=== PATIENT | male | born 1955 | race Caucasian/White ===

== ENCOUNTER 2022-10-21 10:00 | Outpatient (RCR) | payer OTHER, SELFPAY | END 2023-03-06 23:59 | disposition home or self-care (01) | PROVIDERS: PCP Family Medicine; Visit Provider Family Medicine | DX: M16.0 Bilateral primary osteoarthritis of hip (principal); M48.07 Spinal stenosis, lumbosacral region; M54.50 Low back pain, unspecified; M54.9 Dorsalgia, unspecified; M25.551 Pain in right hip; R26.9 Unspecified abnormalities of gait and mobility; Z95.0 Presence of cardiac pacemaker; Z87.39 Personal history of other diseases of the musculoskeletal system and connective tissue; I48.91 Unspecified atrial fibrillation; Z51.89 Encounter for other specified aftercare | CPT/HCPCS: 97110; 97112; 97162 ==

== ENCOUNTER 2022-11-03 09:28 | Outpatient (CLI) | payer OTHER, SELFPAY | END 2022-11-03 09:29 | disposition home or self-care (01) | PROVIDERS: PCP Family Medicine; Visit Provider Orthopaedic Surgery | DX: Z01.818 Encounter for other preprocedural examination (principal) | CPT/HCPCS: 36415; 86850; 86900; 86901 ==

== ENCOUNTER 2022-11-05 09:51 | Day surgery (SDC) | payer OTHER, SELFPAY ==
[2022-11-05] VITALS (24 sets, daily range): BP systolic 99–159; BP diastolic 55–86; PULSE 61–96; RESP 12–16; TEMP 35.8–36.7; O2SAT 91–99; BMI 40.6
[2022-11-05] MEDS: LACTATED RINGERS 1000 ML 1,000 ML 100 ML IV ×2 (09:55→12:18)
[2022-11-05] MEDS: CELECOXIB 200 MG CAPSULE PO (10:35)
[2022-11-05] MEDS: OXYCODONE (CR) 10 MG TAB.ER.12H PO (10:35)
[2022-11-05] MEDS: ACETAMINOPHEN 500 MG TABLET 1000 MG PO ×2 (10:35→16:04)
[2022-11-05] MEDS: SODIUM CHLORIDE 0.9 % (FLUSH) 10 ML SYRINGE IVF (10:43)
--- NOTE | 2022-11-05 10:55 | SUR.PREOP ---
TIME?OUT:?10:55am PT/RN/MDA?VERIFICATION?OF?SURGICAL?SITE Right Hip,?PROCEDURE Nerve Block,?AND?CONSENT OBTAINED?PRIOR?TO?INVASIVE?PROCEDURE.
[2022-11-05] MEDS: fentaNYL 100 MCG/2 ML inj IVP (10:56)
[2022-11-05] MEDS: MIDAZOLAM HCL 1 MG/ML inj IVP (10:56)
--- NOTE | 2022-11-05 11:00 | W.ANESCHARGE ---
Anesthesia Charges Start Date/Time Anesthesia Start Date: 11/05/22 Anesthesia Start Time: 11:06 Stop Date/Time Anesthesia Stop Date: 11/05/22 Anesthesia Stop Time: 14:05
--- NOTE | 2022-11-05 11:01 | P.NB_ITS ---
Nerve Block Nerve Block Time Seen by Provider: 10:58 Date Seen: 11/05/22 Type of block requested by surgeon for post-operative analgesia: BEN/LFCN Side: right Time out performed: Yes Verification of patient name: Yes Verification of date of : Yes Site marking: site marked Name of person performing procedure: Kentrell Continuous monitoring Was continuous monitoring of O2 sat, B/P, satellite project site monitor, recorded every 15 minutes?: Yes Procedure Checklist: sterile prep, needles and gloves Ultrasound guided. Images saved: Yes Medications given in 5ml increments after negative aspiration: Ropivicaine %: 0.5 mL: 30 Needle gauge: 20 Decadron (mg): 10 Precedex (mcg): 25 Patient tolerated procedure well: Yes Additional comments: Needle noted below psoas tendon needle noted adjacent to LFCN Block Charges Block Charge (with Pro Fee): Other Periph Nerve Block Use of Ultrasound Machine for Block: Yes- US Guidance/pain block
[2022-11-05] MEDS: TRANEXAMIC ACID 100 MG/ML INJ 1000 MG IV (11:10)
[2022-11-05] MEDS: CEFAZOLIN 2 GM INJ IVP (11:14)
--- NOTE | 2022-11-05 11:30 | CRLHL7_ITS ---
For Patients: As a result of the Cures Act, medical imaging exams and procedure reports are released immediately into your electronic medical record. You may view this report before your referring provider. If you have questions, please contact your health care provider. Indication: Hip replacement surgery Technique: AP hip fluoroscopic images. Fluoroscopy time 80.2 seconds. Findings/Impression: Hardware from a right total hip arthroplasty is in satisfactory position. Dictated by Darryl Donaldson MD @ 11/05/2022 3:09:05 PM (Electronically Signed)
--- NOTE | 2022-11-05 13:10 | SUR.PREOP ---
I have reviewed and concur with all assessments, medication administration, and documentation completed by Varsha Monte, student nurse.?
--- NOTE | 2022-11-05 13:15 | CRLHL7_ITS ---
For Patients: As a result of the Cures Act, medical imaging exams and procedure reports are released immediately into your electronic medical record. You may view this report before your referring provider. If you have questions, please contact your health care provider. Indication: Postop Technique: AP hips and pelvis and lateral view right hip Findings/Impression: Hardware from a right total hip arthroplasty is in satisfactory position. Bone alignment is normal. No sign of acute fracture. Postop changes are within normal limits. Dictated by Darryl Donaldson MD @ 11/06/2022 6:37:02 AM (Electronically Signed)
--- NOTE | 2022-11-05 13:18 | PM.ORPRC ---
Procedure Note Date of procedure: 11/05/22 Procedure: PREOPERATIVE DIAGNOSIS: Right hip osteoarthritis POSTOPERATIVE DIAGNOSIS: Right hip osteoarthritis NAME OF OPERATION: Right total hip arthroplasty SURGEON: Hugo Grove MD MEDICAL TRANSPORT SPECIALIST: Gina Elizondo PA-C, MAJO Horn IMPLANTS: 1. [employer] [place] # 54 sector ingrowth cup 2. 36 x 54 +4 neutral polyethylene 3. Actis # 7 high collared ingrowth stem 4. 36 + 8.5 ceramic femoral head ANESTHESIA: General ESTIMATED BLOOD LOSS: 850 cc COMPLICATIONS: None SPECIMENS: None DRAINS: None PREOPERATIVE ANTIBIOTICS: Ancef 3 grams INDICATIONS: The patient is a 66-year-old with a longstanding history of severe, unrelenting right hip pain secondary to end-stage right hip osteoarthritis. Despite appropriate nonoperative management, including activity modification, use of an assist device, anti-inflammatories, [id number] pain medication, physical therapy and injections, they continue to have pain and disability. Operative intervention was offered. The risks, benefits and expected outcomes were discussed in detail. These included but were not limited to: Infection, bleeding, injury to blood vessel or nerve, venous thromboembolism. All questions were answered to their satisfaction. Use of an contact lens assistant was necessary throughout the case for patient positioning and safety, soft tissue retraction and closure. A modifier 22 should be added to this case. The patient's weight of 125 kg with a BMI of 40.7 kg/meter squared made the exposure quite difficult. This doubled the time typically required to complete the case. PROCEDURE: The patient was placed supine on the [place] table. General anesthesia was administered. The contact lens assistant made sure the patient was properly positioned. The right hip was prepped and draped in the usual sterile fashion. The image intensifier was brought in for a perfect AP pelvis and a perfect double tear drop AP view of each hip which were used for intraoperative templating with our fluoroscopic guide. An oblique incision was made 3 cm distal and 3 cm lateral to the anterior superior iliac spine. The contact lens assistant retracted the soft tissues to protect them. Subcutaneous dissection was taken with electrocautery to the superficial fascia. The fascia was divided in line with the incision. Blunt dissection was carried medially to the tensor fascia holly and sartorius interval. Deep dissection was carried with electrocautery. The circumflex vessels were cauterized and divided. The capsule was exposed and then divided in a T-fashion, tagged with #1 Ethibond sutures. Retractors were placed in the joint, held by the contact lens assistant. The corkscrew was placed in the femoral head. The neck cut was made in the subcapital region. We made a second neck cut more distal. The napkin ring of bone was removed. The femoral head was removed intact. Acetabular retractors were placed, held by the contact lens assistant. The labrum was sharply debrided. The capsule was released. The 43 mm reamer was used to the true medial wall. We then enlarged in 2 mm increments using the image intensifier for our reamer placement. We impacted the cup which had excellent purchase. We placed the hole eliminator and the polyethylene. Attention was then turned to the proximal femur. The limb was placed in 140 degrees of external rotation, maximum extension and adduction. A significant amount of time was spent releasing the capsule to allow us to deliver the femur into the wound and complete the femoral side safely. Retractors were held by the contact lens assistant throughout the femoral preparation. The box toe maker and canal finder were used. Broaches were used to a stable size. The calcar reamer was used. Trial components were placed. The hip was reduced and was found to be stable with appropriate soft tissue tension. Length and offset had been nicely restored using the image intensifier and our fluoroscopic guide. Trial components were removed. The stem was impacted. We placed the femoral head. Again, the hip was reduced and was found to be stable with appropriate soft tissue tension. Length and offset had been nicely restored. The contact lens assistant did a three minute dilute Betadine solution soak. The contact lens assistant irrigated the wound with 3 liters of normal saline via pulse lavage. The contact lens assistant repaired the anterior capsule with a #1 Vicryl and our previously placed Ethibond sutures. The contact lens assistant closed the fascia over the tensor fascia holly with a #1 PDO Stratafix, subcutaneous tissues with 2-0 Vicryl, skin with a running 3-0 Stratafix and glue. A dry dressing was applied by the contact lens assistant. Sponge and needle counts were correct x 2. The patient tolerated the procedure well; there were no apparent complications. They were awakened and extubated in the operating room, sent to the Post-Anesthesia Care Unit in satisfactory condition. PLAN: 1. The patient will be mobilized with physical therapy, weight-bearing as tolerates 2. Eliquis can be restarted in 24 hours 3. The patient will be discharged once medically appropriate
[2022-11-05] MEDS: fentaNYL 100 MCG/2 ML inj 50 MCG IVP ×2 (14:08→14:22)
--- NOTE | 2022-11-05 14:10 | W.ANESCHARGE ---
Anesthesia Charges Start Date/Time Anesthesia Start Date: 11/05/22 Anesthesia Start Time: 11:06 Stop Date/Time Anesthesia Stop Date: 11/05/22 Anesthesia Stop Time: 14:05
--- NOTE | 2022-11-05 14:42 | SUR.PHASEI ---
xray ap/lat right hip taken
--- NOTE | 2022-11-05 15:23 | PM.IMCN1 ---
Date of Consult Patient: Carmen Patient Consult date: 11/05/22 Requesting Physician: Orthopedics Primary Care Provider: Adelfo Nickerson MD Consult Narrative Reason for consult: hypertension Narrative: Darryl Leo is a 66 year old male who underwent an elective right total hip arthroplasty today. His , Sheela, is in the room with him. He is doing well postoperatively and has very little pain at present. Review of Systems Status of ROS: Reports: 6 or more systems reviewed and unremarkable except as noted in History and below PFSH PFS Medical History (Updated 11/05/22 @ 16:11 by Lucero Chauhan MD) Adenomatous colon polyp (~12/2020) Cardiac arrhythmia Cellulitis and abscess of trunk Contusion of left knee Eczema Hyperlipidemia Hypertension Obesity Pacemaker (08/21/15) Paroxysmal A-fib (~2021) Type 2 diabetes mellitus (~02/20/22) Surgical History (Updated 11/05/22 @ 16:10 by Lucero Chauhan MD) H/O colonoscopy History of incision and drainage (~10/26/13) Hx of LASIK (~2011) Status post total replacement of right hip (11/05/22) Family History Maternal Grandmother No problems noted. Mother Breast cancer Diabetes Father Coronary arteriosclerosis Sister Cancer Social History (Updated 11/05/22 @ 15:28 by Lucero Chauhan MD) Narrative: to Sheela. Quit smoking 4-5 years ago. Denies chewing tobacco. Used to smoke 1ppd for 50 years. Drinks 1 beer month. Retired from [employer]. Smoking Status: Former smoker What tobacco products do you use: cigarettes Smoking quit date/years: <= 15 years ago Do you use any of these nicotine containing products: None Second hand tobacco smoke exposure: No How often do you have a drink containing alcohol: monthly or less Alcohol type: beer How many standard drinks containing alcohol do you have on a typical day: 1 or 2 How often do you have six or more drinks on one occasion: Never AUDIT-C Alcohol total score: 1 Non-prescribed substance use: denies use Caffeine: Yes (Mountain Dew, 3 cans/day) Meds Home Medications and Allergies Home Medications Medication Instructions Recorded Confirmed Type apixaban 5 mg tablet (Eliquis) 5 mg PO BID 09/23/22 11/05/22 History atorvastatin 20 mg tablet 20 mg PO HS 09/23/22 11/05/22 History betamethasone dipropionate 0.05 % 1 applic topical Q12H PRN 09/23/22 11/05/22 History topical cream hydrochlorothiazide 25 mg tablet 25 mg PO DAILY 09/23/22 11/05/22 History lisinopril 40 mg tablet 40 mg PO DAILY 09/23/22 11/05/22 History Allergies Allergy/AdvReac Type Severity Reaction Status Date / Time No Known Drug Allergies Allergy Verified 11/05/22 10:09 Exam Narrative: Exam Narrative: General: No acute distress. Awake alert oriented x3. HEENT: Normocephalic atraumatic, pupils equally round and reactive to light and accommodation. Oropharynx clear. Mucous membranes are moist. No cervical lymphadenopathy, thyromegaly or carotid bruits. No JVD. Cardiovascular: Irregularly irregular. No murmurs, gallops, or rubs. Chest: No increased work of breathing. Clear to auscultation bilaterally. No crackles or wheezes. Abdomen: Bowel sounds present. Soft, nondistended, nontender. No hepatosplenomegaly or masses. Extremities: Right hip bandage is clean, dry, and intact. No edema, no cyanosis or clubbing. Skin: No jaundice, no pallor, no rashes. Const: Vital Signs, click to edit/add: Vital Signs - 24 hr 11/05/22 10:21 11/05/22 10:51 11/05/22 10:56 Temperature 98.1 F Pulse Rate 71 71 71 Pulse Rate [Right Pulse Oximeter] Respiratory Rate 16 16 16 Blood Pressure 127/66 117/70 107/56 L Blood Pressure [Ri ght Arm] Pulse Oximetry 95 94 96 Oxygen Delivery Me thod Room Air Nasal Cannula Nasal Cannula Oxygen Flow Rate 2 2 11/05/22 10:59 11/05/22 14:01 11/05/22 14:05 Temperature 97.4 F L Pulse Rate 70 74 63 Pulse Rate [Right Pulse Oximeter] Respiratory Rate 16 16 16 Blood Pressure 109/55 L 133/59 L 99/62 Blood Pressure [Ri ght Arm] Pulse Oximetry 95 97 97 Oxygen Delivery Me thod Nasal Cannula Room Air Room Air Oxygen Flow Rate 2 11/05/22 14:10 11/05/22 14:15 11/05/22 14:20 Temperature Pulse Rate 63 62 61 Pulse Rate [Right Pulse Oximeter] Respiratory Rate 16 16 16 Blood Pressure 121/61 124/61 124/56 L Blood Pressure [Ri ght Arm] Pulse Oximetry 95 94 98 Oxygen Delivery Me thod Room Air Room Air Room Air Oxygen Flow Rate 11/05/22 14:25 11/05/22 14:30 11/05/22 14:55 Temperature 97.4 F L 96.5 F L Pulse Rate 64 65 Pulse Rate [Right Pulse Oximeter] 64 Respiratory Rate 16 16 16 Blood Pressure 124/57 L 124/57 L Blood Pressure [Ri ght Arm] 133/63 Pulse Oximetry 99 97 95 Oxygen Delivery Me thod Room Air Room Air Room Air Oxygen Flow Rate 2 11/05/22 15:17 Temperature 96.5 F L Pulse Rate 64 Pulse Rate [Right Pulse Oximeter] Respiratory Rate 16 Blood Pressure Blood Pressure [Ri ght Arm] 133/63 Pulse Oximetry Oxygen Delivery Me thod Room Air Oxygen Flow Rate Labs Labs: Ordering Physician: Hugo Grove M.D. Date of Service: 11/05/22 Procedure(s): XR hip RT 1V Accession Number(s): [id number] cc: Adelfo Nickerson M.D.; Hugo Grove M.D.~ For Patients: As a result of the Cures Act, medical imaging exams and procedure reports are released immediately into your electronic medical record. You may view this report before your referring provider. If you have questions, please contact your health care provider. Indication: Hip replacement surgery Technique: AP hip fluoroscopic images. Fluoroscopy time 80.2 seconds. Findings/Impression: Hardware from a right total hip arthroplasty is in satisfactory position. Dictated by Darryl Donaldson MD @ 11/05/2022 3:09:05 PM (Electronically Signed) Assessment and Plan Assessment and plan (1) Status post total replacement of right hip: Problem comment: JAMES-AA (11/05/2022, Dr. Grove) Status: Acute (2) Paroxysmal A-fib: Problem comment: on Eliquis since ~Jul 2022 Status: Acute (3) Pacemaker: Problem comment: for heart block causing syncope Status: Acute (4) Hypertension: Status: Acute (5) Hyperlipidemia: Status: Acute Plan This is a 66-year-old male who underwent an elective right total hip arthroplasty today. He is doing well postoperatively. Continue routine postop cares. Due to some soft blood pressures in the PACU, I will hold his usual antihypertensives for now. If he becomes hypertensive, these can be given. For atrial fibrillation, his rate is controlled. Restart apixaban in the morning. VTE prophylaxis with apixaban.
[2022-11-05] MEDS: LACTATED RINGERS 1000 ML 1,000 ML 75 ML IV (15:43)
[2022-11-05] MEDS: OXYCODONE 5 MG TABLET PO (16:05)
[2022-11-05] MEDS: CEFAZOLIN 3 GM in 0.9 % SODIUM CHLORIDE 100 ml 100 ML IVPB (17:44)
--- NOTE | 2022-11-05 18:09 | PC.NURSE ---
PATIENT PLEASANT AND COOPERATIVE, ALERT AND ORIENTED, RATING PAIN IN RIGHT HIP MILD BEING MANAGED WITH PRN OXYCODONE AND SCHEDULED TYLENOL, ALSO HAVING SOME DISCOMFORT IN RIGHT KNEE, ICE PACK TO BOTH RIGHT HIP AND RIGHT KNEE, UP A1 WALKER AND BELT TO CHAIR TOLERATING FAIRLY, PATIENT EXPRESSED INCREASE PAIN WITH MOVEMENT, TOLERATING REGULAR DIET NO NAUSEA OR VOMITING, AT BEDSIDE AND VERY SUPPORTIVE.
[2022-11-05] MEDS: ATORVASTATIN 10 MG TABLET 20 MG PO (21:07)
[2022-11-05] MEDS: SENNOSIDES 1 TAB TABLET 2 TAB PO (21:08)
[2022-11-06 03:00] VITALS: BP 158/86; PULSE 85; RESP 12; TEMP 36.4; O2SAT 98
--- NOTE | 2022-11-06 04:44 | PC.NURSE ---
Patient is alert and oriented x 4, vss, on RA, regular diet. Patient is voiding WDL, he denies pain, up with walker and gait belt to bathroom. Surgical site is CDI.
[2022-11-06 06:48] LABS: Hematocrit 36.2 % (37.0-53.0); Hemoglobin* 11.7 gm/dL (13.5-17.5); Immature Granulocytes Pct Auto 0.2 %; Lymphocytes Percent Auto 5.8 % (20-44); Mean Corpuscular HGB Conc 32 gm/dL (32-36); Mean Corpuscular Hemoglobin 30 pg (26-34); Mean Corpuscular Volume 93 fL (80-100); Monocytes Percent Auto 7.1 % (0.0-11.0); Neutrophils Percent Auto 86.9 % (42.0-72.0); Platelet Count* 205 K/uL (140-440); RDW Coefficient of Variation % 13.3 % (11.5-15.5); Red Blood Count 3.91 m/uL (4.30-5.90); White Blood Count* 14.66 K/uL (4.50-11.00)
[2022-11-06 07:17] LABS: Potassium* 4.2 mmol/L (3.6-5.1); Sodium* 135 mmol/L (135-149)
[2022-11-06 07:18] LABS: Slide Review Reflex No
[2022-11-06 07:19] LABS: Creatinine* 0.8 mg/dL (0.5-1.5); Est. Creatinine Clearance* 78.44; Estimated Glomerular Filt Rate 98 ml/min
[2022-11-06 07:20] LABS: Blood Urea Nitrogen* 15 mg/dL (7-30)
[2022-11-06 07:30] VITALS: BP 141/83; PULSE 79; RESP 18; TEMP 36.5; O2SAT 96
[2022-11-06] MEDS: ACETAMINOPHEN 500 MG TABLET 1000 MG PO (07:59)
[2022-11-06] MEDS: CEFAZOLIN 3 GM in 0.9 % SODIUM CHLORIDE 100 ml 100 ML IVPB (08:01)
[2022-11-06] MEDS: APIXABAN 5 MG TABLET PO (09:05)
--- NOTE | 2022-11-06 10:18 | P.ORPN_ITS ---
Subjective Subjective Time Seen by Provider: 07:15 Date Seen: 11/06/22 Principal diagnosis: Status post right total hip arthroplasty. 11/05/2022 Interval history: Darryl is comfortable this morning. He is moving well. He will discharge to [facility] today Ortho Exam Narrative Exam Narrative: Alert and oriented x3. Patient is in no acute distress. Converses without labored breathing. Hearing is grossly intact. Ambulates with a walker. Examination of the right hip shows the dressing is intact. Mild soft tissue edema about the right hip. CMS is intact right lower extremity. Bilateral calves are soft and nontender. Const Vital Signs, click to edit/add: Vital Signs - 24 hr 11/05/22 10:21 11/05/22 10:51 11/05/22 10:56 Temperature 98.1 F Pulse Rate 71 71 71 Pulse Rate [Right Pulse Oximeter] Respiratory Rate 16 16 16 Blood Pressure 127/66 117/70 107/56 L Blood Pressure [Left Arm] Blood Pressure [Right Arm] Pulse Oximetry 95 94 96 Oxygen Delivery Method Room Air Nasal Cannula Nasal Cannula Oxygen Flow Rate 2 2 11/05/22 10:59 11/05/22 14:01 11/05/22 14:05 Temperature 97.4 F L Pulse Rate 70 74 63 Pulse Rate [Right Pulse Oximeter] Respiratory Rate 16 16 16 Blood Pressure 109/55 L 133/59 L 99/62 Blood Pressure [Left Arm] Blood Pressure [Right Arm] Pulse Oximetry 95 97 97 Oxygen Delivery Method Nasal Cannula Room Air Room Air Oxygen Flow Rate 2 11/05/22 14:10 11/05/22 14:15 11/05/22 14:20 Temperature Pulse Rate 63 62 61 Pulse Rate [Right Pulse Oximeter] Respiratory Rate 16 16 16 Blood Pressure 121/61 124/61 124/56 L Blood Pressure [Left Arm] Blood Pressure [Right Arm] Pulse Oximetry 95 94 98 Oxygen Delivery Method Room Air Room Air Room Air Oxygen Flow Rate 11/05/22 14:25 11/05/22 14:30 11/05/22 14:55 Temperature 97.4 F L 96.5 F L Pulse Rate 64 65 Pulse Rate [Right Pulse Oximeter] 64 Respiratory Rate 16 16 16 Blood Pressure 124/57 L 124/57 L Blood Pressure [Left Arm] Blood Pressure [Right Arm] 133/63 Pulse Oximetry 99 97 95 Oxygen Delivery Method Room Air Room Air Room Air Oxygen Flow Rate 2 11/05/22 15:17 11/05/22 15:00 11/05/22 16:00 Temperature 96.5 F L Pulse Rate 64 Pulse Rate [Right Pulse Oximeter] 66 71 Respiratory Rate 16 16 16 Blood Pressure Blood Pressure [Left Arm] Blood Pressure [Right Arm] 133/63 136/60 153/63 H Pulse Oximetry 95 96 Oxygen Delivery Method Room Air Room Air Room Air Oxygen Flow Rate 11/05/22 15:30 11/05/22 15:15 11/05/22 16:30 Temperature Pulse Rate Pulse Rate [Right Pulse Oximeter] 76 63 71 Respiratory Rate 16 16 16 Blood Pressure Blood Pressure [Left Arm] Blood Pressure [Right Arm] 144/80 H 136/67 155/79 H Pulse Oximetry 91 93 92 Oxygen Delivery Method Room Air Room Air Room Air Oxygen Flow Rate 11/05/22 17:00 11/05/22 18:00 11/05/22 19:00 Temperature 97.0 F L 97.2 F L Pulse Rate Pulse Rate [Right Pulse Oximeter] 70 70 91 Respiratory Rate 16 16 12 Blood Pressure Blood Pressure [Left Arm] Blood Pressure [Right Arm] 159/86 H 120/73 132/73 Pulse Oximetry 97 91 98 Oxygen Delivery Method Room Air Room Air Room Air Oxygen Flow Rate 11/05/22 21:00 11/05/22 22:00 11/05/22 23:00 Temperature 98 F 97.4 F L 98 F Pulse Rate Pulse Rate [Right Pulse Oximeter] 96 96 96 Respiratory Rate 12 12 12 Blood Pressure Blood Pressure [Left Arm] Blood Pressure [Right Arm] 124/82 146/81 H 133/74 Pulse Oximetry 96 95 96 Oxygen Delivery Method Room Air Room Air Room Air Oxygen Flow Rate 11/06/22 03:00 11/06/22 07:30 Temperature 97.5 F L 97.7 F Pulse Rate Pulse Rate [Right Pulse Oximeter] 85 79 Respiratory Rate 12 18 Blood Pressure Blood Pressure [Left Arm] 141/83 H Blood Pressure [Right Arm] 158/86 H Pulse Oximetry 98 96 Oxygen Delivery Method Room Air Room Air Oxygen Flow Rate Assessment and Plan Assessment and plan (1) Status post total replacement of right hip: Problem details: JAMES-AA (11/05/2022, Dr. Grove) Status: Acute Assessment and Plan: Plan for discharge is today to home if they meet discharge criteria. DVT prophylaxis includes usual dose of Eliquis, Bladimir stockings x1 month may remove for 1 hr per day, frequent ambulation Remove dressing 1 week. Observe wound and phone Orthopedics with any questions or concerns Use Ice on operative hip unrestricted. Return to clinic in 1 week with PA for a wound check Return to clinic in [address] Grove Minimize narcotic use. Wean off and discontinue soon as possible. Activities as tolerated. No strenuous activity. Attend outpt PT (2) Paroxysmal A-fib: Problem details: on Eliquis since ~Jul 2022 Status: Acute (3) Pacemaker: Problem details: for heart block causing syncope Status: Acute (4) Hypertension: Status: Acute (5) Hyperlipidemia: Status: Acute
--- NOTE | 2022-11-06 11:18 | PC.SOCIAL ---
Per therapy pt is transferring and moving well. Pt is discharging home with 's assistance during recovery. Pt does not have any identified needs for social work.
[2022-11-06 11:29] VITALS: BP 141/83; PULSE 79; RESP 18; TEMP 36.5
--- NOTE | 2022-11-06 11:31 | PC.NURSE ---
D/C: SBA w/ walker. Mild to moderate pain reported. Scheduled Tylenol was given and PRN oxycodone was declined by pt. Dressing CDI, active ice to site. Tolerate regular diet, no nausea/vomiting. IV D/C tip intact. D/c instructions given verbally and in writing to patient and spouse. All questions answered. Follow-up apts reviewed and patient aware. Left via wheelchair and 1103 with spouse and returning home.
== END 2022-11-06 11:03 | disposition home or self-care (01) ==
LOC: OR 09:52 → MEDSURG 11:05
PROVIDERS: PCP Family Medicine; Visit Provider Orthopaedic Surgery
PROC: (CPT 27130; principal; 2022-11-05 11:30)
DX: M16.11 Unilateral primary osteoarthritis, right hip (principal); I48.0 Paroxysmal atrial fibrillation; Z95.0 Presence of cardiac pacemaker; I10 Essential (primary) hypertension; E78.5 Hyperlipidemia, unspecified; E11.9 Type 2 diabetes mellitus without complications; E66.9 Obesity, unspecified; Z68.38 Body mass index [BMI] 38.0-38.9, adult
CPT/HCPCS: 27130; 01214; 36415; 64450; 73501; 76000; 76942; 82565; 82962; 84132; 84295; 84520; 85025; 94761; 97110; 97116; 97161; 97165; 97535; 99211; A9270; C1776; J0330; J0690; J1100; J2250; J2405; J2704; J2710; J2795; J3010; J7120

== ENCOUNTER 2022-12-23 08:30 | Outpatient (RCR) | payer OTHER, SELFPAY ==
--- NOTE | 2022-10-28 14:35 | PT.OPEX ---
PT [place] [facility] Eval PT [facility] Outpatient Eval Start: 10/28/22 14:13 Freq: Status: Active Protocol: Document 10/28/22 14:14 RIO (Rec: 10/28/22 14:30 RIO [id number]) E-signed By Cande Odom DPT Physical Therapy Outpatient Evaluation Insurance Information Recert Due Date 01/26/23 Insurance Name Other; See Comments Insurance Information/Comments [employer] Medical Diagnosis R hip OA R JAMES 11/05/22 Treating Diagnosis R hip pain, impaired R hip ROM , impaired R hip/LE mobility/ strength, impaired limping/ antalgic gait Subjective Subjective Patient reports chronic R hip pain leading up to R JAMES . He reports having recent PT for his back and hip. He is doing some home exercises regularly, getting them in 4x/ day. He reports increased pain with WB, walking, activity. Pain up to 7/10. He lives with spouse and she is able to assist him as needed after surgery. Date of Last Physician Visit 09/23/22 Date of Surgery (If applicable) 11/05/22 Current Work Status Retired Precautions Treatment Precautions/Contraindications pacemaker Assessment Assessment/Impression Patient is a 66 year old male with chronic R hip pain, impaired R hip ROM, impaired R hip/LE mobility/strength, impaired limping/antalgic gait leading up to R JAMES scheduled for 11/05/22. Patient seen in PT today for pre-op session to provide education/ information on upcoming JAMES surgery, safety information/HO , equipment instruction including use of FWW, and instruction in JAMES exercises. Handouts issued for exercises , patient to perform them leading up to surgery. He recently had PT for chronic back pain and R hip pain. States he has been doing some home exercises from that PT course of care. He was instructed to continue with these exercises. Reviewed PT/ OT plan during hospital stay and patient is scheduled for OP PT post op. He lives with his spouse. She is able to assist as needed after d/c. Patient has a ramp to enter through the front door. One stair up to enter the home from the garage. Once inside, patient can stay on the main level. He has a FWW and cane to use after surgery. Hasn't been using an AD prior to surgery. Reports having a high toilet. Discussed a commode chair for over the toilet but patient did not think he would need that with his higher toilet seat. He has a tub shower. He is planning to borrow a tub chair . He denies any prior back, hip, or knee surgeries. States he has a LLD with R LE shorter than L LE, MD will be trying to even out LL with his hip surgery. Patient will return to OP PT after his surgery on 11/05. Patient would benefit from skilled PT for pain/sx management, improved hip ROM, improved hip /LE mobility/strength, improved gait, balance/ proprioception training, and establishment of HEP. Plan of Care Rehabilitation Potential Good Physical Therapy Goals 1. Patient will be educated in JAMES pre/post-op safety, mobility, and exercises with HOs provided within one visit with patient returning to PT for post op treatment after R JAMES surgery on 11/05/22. PT goals will be updated to JAMES rehab goals when patient returns post op. Coordination/Communication With Referral Source Treatment Plan/Direct Interventions Gait Training,Manual Therapy, Therapeutic Exercises Frequency/Duration one pre-op session, 1x/week post op Patient Will Be Discharged From Therapy Completion of LTG(s),Skills Plateau,Independent w/HEP, Independently Progressing Evaluation Billing Untimed Code Treatment Minutes 35 Complexity Moderate Certification Information Initial Certification Date 10/28/22 Ending Certification Date 01/26/23 Provider Signature Shows Agreement With POC & Medical Necessity Physician Signature & Date Requested Please Sign/Date Here Physician Comment/Change : Physician NPI Number #
== END 2023-03-21 14:40 | disposition home or self-care (01) ==
PROVIDERS: PCP Family Medicine; Visit Provider Orthopaedic Surgery
DX: M16.11 Unilateral primary osteoarthritis, right hip (principal); Z96.641 Presence of right artificial hip joint; Z51.89 Encounter for other specified aftercare
CPT/HCPCS: 97110; 97162; 97164

== ENCOUNTER 2023-03-25 11:48 | Outpatient (CLI) | payer OTHER, SELFPAY | END 2023-03-25 11:49 | disposition home or self-care (01) | PROVIDERS: PCP Family Medicine; Visit Provider Orthopaedic Surgery | DX: Z01.818 Encounter for other preprocedural examination (principal) | CPT/HCPCS: 36415; 86850; 86900; 86901 ==

== ENCOUNTER 2023-03-27 06:05 | Day surgery (SDC) | payer OTHER, SELFPAY ==
[2023-03-27] VITALS (32 sets, daily range): BP systolic 105–157; BP diastolic 61–105; PULSE 59–80; RESP 14–18; TEMP 35.8–36.8; O2SAT 92–100; BMI 39.4
[2023-03-27] MEDS: LACTATED RINGERS 1000 ML 1,000 ML 100 ML IV (06:15)
[2023-03-27] MEDS: ACETAMINOPHEN 500 MG TABLET 1000 MG PO ×3 (06:34→20:26)
[2023-03-27] MEDS: OXYCODONE (CR) 10 MG TAB.ER.12H PO (06:35)
[2023-03-27] MEDS: SODIUM CHLORIDE 0.9 % (FLUSH) 10 ML SYRINGE IVF (06:35)
[2023-03-27] MEDS: CELECOXIB 200 MG CAPSULE PO (06:35)
--- NOTE | 2023-03-27 07:03 | SUR.PREOP ---
TIME?OUT:?0720 PT/RN/MDA?VERIFICATION?OF?SURGICAL?SITE Left Hip,?PROCEDURE nerve block,?AND?CONSENT OBTAINED?PRIOR?TO?INVASIVE?PROCEDURE.
[2023-03-27] MEDS: MIDAZOLAM HCL 1 MG/ML inj IVP (07:29)
[2023-03-27] MEDS: fentaNYL 100 MCG/2 ML inj IVP (07:30)
--- NOTE | 2023-03-27 07:30 | CRLHL7_ITS ---
For Patients: As a result of the Cures Act, medical imaging exams and procedure reports are released immediately into your electronic medical record. You may view this report before your referring provider. If you have questions, please contact your health care provider. Indication: Hip replacement surgery Technique: AP hip fluoroscopic images. Fluoroscopy time 57.0 seconds. Findings/Impression: Hardware from a left total hip arthroplasty is in satisfactory position. Dictated by Darryl Donaldson MD @ 03/27/2023 10:09:15 AM (Electronically Signed)
[2023-03-27] MEDS: CEFAZOLIN 2 GM INJ IVP (08:10)
--- NOTE | 2023-03-27 09:06 | W.PM.NB ---
Nerve Block Nerve Block Time Seen by Provider: 07:25 Date Seen: 03/27/23 Type of block requested by surgeon for post-operative analgesia: BEN/LFCN Side: left Time out performed: Yes Verification of patient name: Yes Verification of date of : Yes Site marking: site marked Name of person performing procedure: Kentrell Continuous monitoring Was continuous monitoring of O2 sat, B/P, surveillance monitor, recorded every 15 minutes?: Yes Procedure Checklist: sterile prep, needles and gloves Ultrasound guided. Images saved: Yes Medications given in 5ml increments after negative aspiration: Ropivicaine %: 0.5 mL: 30 Needle gauge: 20 Decadron (mg): 10 Precedex (mcg): 25 Patient tolerated procedure well: Yes Additional comments: Needle noted below psoas tendon needle noted adjacent to LFCN Block Charges Block Charge (with Pro Fee): Other Periph Nerve Block Use of Ultrasound Machine for Block: Yes- US Guidance/pain block
--- NOTE | 2023-03-27 09:07 | W.ANESCHARGE ---
Anesthesia Charges Start Date/Time Anesthesia Start Date: 03/27/23 Anesthesia Start Time: 07:48 Stop Date/Time Anesthesia Stop Date: 03/27/23 Anesthesia Stop Time: 10:44
--- NOTE | 2023-03-27 09:51 | CRLHL7_ITS ---
For Patients: As a result of the Cures Act, medical imaging exams and procedure reports are released immediately into your electronic medical record. You may view this report before your referring provider. If you have questions, please contact your health care provider. Indication: Postop Technique: AP hip centered pelvis and lateral view left hip, two views total Findings/Impression: Hardware from a left total hip arthroplasty is in satisfactory position. Bone alignment is normal. No sign of acute fracture. Postop changes are within normal limits. Dictated by Darryl Donaldson MD @ 03/27/2023 11:10:00 AM (Electronically Signed)
--- NOTE | 2023-03-27 09:56 | PM.ORPRC ---
Procedure Note Date of procedure: 03/27/23 Procedure: PREOPERATIVE DIAGNOSIS: Left hip osteoarthritis POSTOPERATIVE DIAGNOSIS: Left hip osteoarthritis NAME OF OPERATION: Left total hip arthroplasty SURGEON: Hugo Grove MD BEVEL FACE STONER AND POLISHER: Gina Elizondo PA-C, MAJO Horn IMPLANTS: 1. [employer] Grover # 54 sector ingrowth cup 2. 36 x 54 +4 neutral polyethylene 3. Actis # 7 high offset collared ingrowth stem 4. 36 + 1.5 ceramic femoral head ANESTHESIA: General ESTIMATED BLOOD LOSS: 500 cc COMPLICATIONS: None SPECIMENS: None DRAINS: None PREOPERATIVE ANTIBIOTICS: Ancef 3 grams INDICATIONS: The patient is a 67-year-old with a longstanding history of severe, unrelenting left hip pain secondary to end-stage left hip osteoarthritis. Despite appropriate nonoperative management, including activity modification, use of an assist device, anti-inflammatories, [id number] pain medication, physical therapy and injections, they continue to have pain and disability. Operative intervention was offered. The risks, benefits and expected outcomes were discussed in detail. These included but were not limited to: Infection, bleeding, injury to blood vessel or nerve, venous thromboembolism. All questions were answered to their satisfaction. Use of an medical services assistant was necessary throughout the case for patient positioning and safety, soft tissue retraction and closure. A modifier 22 should be added to this case. The patient's weight of 125 kg with a BMI of 40 kg/meter squared, short stature and muscular frame made exposure almost impossible. This more than tripled the time typically required to complete the case. PROCEDURE: The patient was placed supine on the [place] table. General anesthesia was administered. The medical services assistant made sure the patient was properly positioned. The left hip was prepped and draped in the usual sterile fashion. The image intensifier was brought in for a perfect AP pelvis and a perfect double tear drop AP view of each hip which were used for intraoperative templating with our fluoroscopic guide. An oblique incision was made 3 cm distal and 3 cm lateral to the anterior superior iliac spine. The medical services assistant retracted the soft tissues to protect them. Subcutaneous dissection was taken with electrocautery to the superficial fascia. The fascia was divided in line with the incision. Blunt dissection was carried medially to the tensor fascia holly and sartorius interval. Deep dissection was carried with electrocautery. The circumflex vessels were cauterized and divided. The capsule was exposed and then divided in a T-fashion, tagged with #1 Ethibond sutures. Retractors were placed in the joint, held by the medical services assistant. The corkscrew was placed in the femoral head. The neck cut was made in the subcapital region. We made a second neck cut more distal. The napkin ring of bone was removed. The femoral head was removed intact. Acetabular retractors were placed, held by the medical services assistant. The labrum was sharply debrided. The capsule was released. The 43 mm reamer was used to the true medial wall. We then enlarged in 2 mm increments using the image intensifier for our reamer placement. We impacted the cup which had excellent purchase. We placed the hole eliminator and the polyethylene. Attention was then turned to the proximal femur. The limb was placed in 140 degrees of external rotation, maximum extension and adduction. A significant amount of time was spent releasing the capsule to allow us to deliver the femur into the wound and complete the femoral side safely. Retractors were held by the medical services assistant throughout the femoral preparation. The gill box tender and canal finder were used. Broaches were used to a stable size. The calcar reamer was used. Trial components were placed. The hip was reduced and was found to be stable with appropriate soft tissue tension. Length and offset had been nicely restored using the image intensifier and our fluoroscopic guide. Trial components were removed. The stem was impacted. We placed the femoral head. Again, the hip was reduced and was found to be stable with appropriate soft tissue tension. Length and offset had been nicely restored. The medical services assistant did a three minute dilute Betadine solution soak. The medical services assistant irrigated the wound with 3 liters of normal saline via pulse lavage. The medical services assistant repaired the anterior capsule with a #1 Vicryl and our previously placed Ethibond sutures. The medical services assistant closed the fascia over the tensor fascia holly with a #1 PDO Stratafix, subcutaneous tissues with 2-0 Vicryl, skin with a running 3-0 Stratafix and glue. A dry dressing was applied by the medical services assistant. Sponge and needle counts were correct x 2. The patient tolerated the procedure well; there were no apparent complications. They were awakened and extubated in the operating room, sent to the Post-Anesthesia Care Unit in satisfactory condition. PLAN: 1. The patient will be mobilized with physical therapy, weight-bearing as tolerates 2. Eliquis can be restarted tomorrow 3. The patient will be discharged once medically appropriate
[2023-03-27] MEDS: fentaNYL 100 MCG/2 ML inj 50 MCG IVP ×3 (11:06→11:32)
[2023-03-27] MEDS: HYDROmorphone 0.5 mg/0.5 ml inj IVP ×2 (11:19→11:43)
[2023-03-27] MEDS: LACTATED RINGERS 1000 ML 1,000 ML 75 ML IV (12:41)
--- NOTE | 2023-03-27 13:35 | PC.NURSE ---
Pt arrived via hospital bed to room 257 from PACU s/p LTHAA with Dr. Martinez. Please see initial assessment from PACU and frequent post op VS. Bed alarm engaged, knee locked out. Sheela supportive at bedside. Pt sleepy d/to meds given prior to transfer from PACU to med/surg. Oxygen @ 2L/NC to maintain sats.
--- NOTE | 2023-03-27 13:38 | W.ANESCHARGE ---
Anesthesia Charges Start Date/Time Anesthesia Start Date: 03/27/23 Anesthesia Start Time: 07:48 Stop Date/Time Anesthesia Stop Date: 03/27/23 Anesthesia Stop Time: 10:44
--- NOTE | 2023-03-27 14:13 | PC.NURSE ---
Pt has IV Ancef 3 gm dose infusing and has taken his scheduled tylenol 1000mg. Lunch tray ordered. Pt is currently performing exercises with PT. Oxygen discontinued now that patient is less drowsy, encourage TCDB w/a. Report will be provided to oncoming shift RN.
--- NOTE | 2023-03-27 14:24 | PC.SOCIAL ---
Discharge Planning: Met with patient, Darryl and his , Sheela. Darryl is planning on going back home tomorrow with his , Sheela caring for him. He discussed how his house has been updated with accessibility for his mother, and [id number] in the past, making it easy for him to manage at home. Social work to follow up as needed.
--- NOTE | 2023-03-27 20:09 | PM.IMPN1 ---
Progress Note: A&P Assessment and plan (1) Status post left hip replacement: Problem details: pain control; diet; dvt ppx per surgery service Status: Acute (2) Type 2 diabetes mellitus: Problem details: diet controlled Status: Acute (3) Hypertension: Problem details: hold antihypertensives for now Status: Acute (4) Hyperlipidemia: Problem details: continue statin Status: Acute (5) Pacemaker: Problem details: for heart block causing syncope Status: Acute (6) Paroxysmal A-fib: Problem details: on Eliquis since ~Jul 2022; likely can resume tomorrow if ok with surgery Status: Acute Subjective Date Seen: 03/27/23 Interval history: POSTOPERATIVE DIAGNOSIS: Left hip osteoarthritis NAME OF OPERATION: Left total hip arthroplasty ANESTHESIA: General ESTIMATED BLOOD LOSS: 500 cc patient stable following surgery tolerating diet pain control denies cp, sob, nausea, vomiting Exam Narrative: Exam Narrative: Gen: no acute distress HEENT: NCAT EOMI mmm Neck: Supple CV: RRR normal s1 s2 Lungs: CTAB Abd: Soft,nt, nd Neuro: Alert, oriented, CN grossly intact; nonfocal screening?exam Psych: appropriate affect MSK: age appropriate muscle mass Skin; Warm, dry no rash on face Const: Vital Signs, click to edit/add: Vital Signs - 24 hr 03/27/23 06:23 03/27/23 07:22 03/27/23 07:26 Temperature 97.8 F Pulse Rate 63 70 61 Pulse Rate [Pulse Oximeter] Respiratory Rate 16 16 16 Blood Pressure 137/75 157/86 H 150/86 H Blood Pressure [Le ft Arm] Pulse Oximetry 97 97 97 Oxygen Delivery Me thod Room Air Nasal Cannula Nasal Cannula Oxygen Flow Rate 2 2 03/27/23 07:34 03/27/23 10:40 03/27/23 10:45 Temperature 97.0 F L Pulse Rate 61 61 61 Pulse Rate [Pulse Oximeter] Respiratory Rate 16 16 16 Blood Pressure 123/74 141/65 H 133/64 Blood Pressure [Le ft Arm] Pulse Oximetry 97 96 92 Oxygen Delivery Me thod Nasal Cannula Room Air Nasal Cannula Oxygen Flow Rate 2 2 03/27/23 10:50 03/27/23 10:55 03/27/23 11:00 Temperature 97.0 F L Pulse Rate 62 61 63 Pulse Rate [Pulse Oximeter] Respiratory Rate 16 16 Blood Pressure 134/64 130/66 131/67 Blood Pressure [Le ft Arm] Pulse Oximetry 100 100 100 Oxygen Delivery Me thod Nasal Cannula Oxygen Flow Rate 2 03/27/23 11:05 03/27/23 11:10 03/27/23 11:15 Temperature 97.1 F L Pulse Rate 62 63 60 Pulse Rate [Pulse Oximeter] Respiratory Rate 16 16 16 Blood Pressure 125/100 H 138/67 137/66 Blood Pressure [Le ft Arm] Pulse Oximetry 100 100 100 Oxygen Delivery Me thod Nasal Cannula Oxygen Flow Rate 2 03/27/23 11:20 03/27/23 11:25 03/27/23 11:30 Temperature 97.0 F L Pulse Rate 59 L 60 60 Pulse Rate [Pulse Oximeter] Respiratory Rate 16 16 14 Blood Pressure 138/74 137/68 143/73 H Blood Pressure [Le ft Arm] Pulse Oximetry 94 99 100 Oxygen Delivery Me thod Nasal Cannula Oxygen Flow Rate 2 03/27/23 11:35 03/27/23 11:45 03/27/23 11:54 Temperature 97.0 F L 96.5 F L Pulse Rate 60 60 61 Pulse Rate [Pulse Oximeter] Respiratory Rate 14 16 18 Blood Pressure 130/71 146/74 H Blood Pressure [Le ft Arm] 143/83 H Pulse Oximetry 100 100 Oxygen Delivery Me thod Nasal Cannula Nasal Cannula Oxygen Flow Rate 2 03/27/23 12:00 03/27/23 12:15 03/27/23 12:22 Temperature 96.5 F L Pulse Rate Pulse Rate [Pulse Oximeter] 60 60 Respiratory Rate 18 18 18 Blood Pressure Blood Pressure [Le ft Arm] 122/68 129/61 Pulse Oximetry 95 97 98 Oxygen Delivery Me thod Nasal Cannula Nasal Cannula Nasal Cannula Oxygen Flow Rate 2 2 2 03/27/23 12:30 03/27/23 12:45 03/27/23 13:00 Temperature 97 F L Pulse Rate Pulse Rate [Pulse Oximeter] 59 L 60 60 Respiratory Rate 18 18 18 Blood Pressure Blood Pressure [Le ft Arm] 133/70 135/69 125/64 Pulse Oximetry 98 94 95 Oxygen Delivery Me thod Nasal Cannula Nasal Cannula Nasal Cannula Oxygen Flow Rate 2 2 2 03/27/23 13:30 03/27/23 14:00 03/27/23 15:00 Temperature 97 F L 97.2 F L Pulse Rate Pulse Rate [Pulse Oximeter] 65 67 69 Respiratory Rate 18 18 18 Blood Pressure Blood Pressure [Le ft Arm] 105/64 136/68 128/67 Pulse Oximetry 98 94 93 Oxygen Delivery Me thod Nasal Cannula Room Air Room Air Oxygen Flow Rate 2 03/27/23 16:00 03/27/23 17:00 Temperature 97.4 F L Pulse Rate Pulse Rate [Pulse Oximeter] 66 64 Respiratory Rate 18 16 Blood Pressure Blood Pressure [Le ft Arm] 127/77 124/77 Pulse Oximetry 92 94 Oxygen Delivery Me thod Room Air Room Air Oxygen Flow Rate
[2023-03-27] MEDS: SENNOSIDES 1 TAB TABLET 2 TAB PO (20:26)
[2023-03-27] MEDS: ATORVASTATIN 10 MG TABLET 20 MG PO (21:43)
[2023-03-28] MEDS: ACETAMINOPHEN 500 MG TABLET 1000 MG PO ×2 (02:38→08:36)
[2023-03-28 03:00] VITALS: BP 144/79; PULSE 75; RESP 18; TEMP 36.6; O2SAT 93
--- NOTE | 2023-03-28 05:14 | PC.NURSE ---
END OF SHIFT NOTE: PT PLEASANT AND COOPERATIVE. A&Ox4. DENIES CP, SOB, N/V. AMBULATES WITH WALKER, GB, SBA. VSS ON RA; AFEBRILE. INCISION TO LEFT HIP C/D/I. ACTIVE ICE APPLIED. GOOD ORAL INTAKE; IV TO R WRIST SL. CALL LIGHT WITHIN PT?S REACH.?
[2023-03-28 06:42] LABS: Immature Granulocytes Pct Auto 0.1 %; Lymphocytes Percent Auto 5.1 % (20-44); Mean Corpuscular HGB Conc 31 gm/dL (32-36); Mean Corpuscular Hemoglobin 29 pg (26-34); Mean Corpuscular Volume 92 fL (80-100); Monocytes Percent Auto 5.6 % (0.0-11.0); Neutrophils Percent Auto 89.2 % (42.0-72.0); Platelet Count* 185 K/uL (140-440); RDW Coefficient of Variation % 13.5 % (11.5-15.5); Red Blood Count 3.79 m/uL (4.30-5.90); White Blood Count* 14.34 K/uL (4.50-11.00)
[2023-03-28 06:47] LABS: Slide Review Reflex No
[2023-03-28 06:56] LABS: Potassium* 4.1 mmol/L (3.6-5.1); Sodium* 136 mmol/L (135-149)
[2023-03-28 06:59] LABS: Blood Urea Nitrogen* 19 mg/dL (7-30); Creatinine* 0.8 mg/dL (0.5-1.5); Est. Creatinine Clearance* 75.03; Estimated Glomerular Filt Rate 98 ml/min
--- NOTE | 2023-03-28 07:23 | PM.ORPN ---
Subjective Subjective Time Seen by Provider: 07:00 Date Seen: 03/28/23 Principal diagnosis: Day 1 s/p left JAMES (Dr. Grove) Interval history: Darryl is doing well this morning and is resting comfortably in his recliner. Patient complains of left mid-thigh soreness. Pain is is well managed with current scheduled and PRN oral pain medications and ice. Denies: fever, chills, body aches, chest pain, SOB. Patient has not yet had a bowel movement and reports no flatulence yet. No acute concerns. Patient feels ready to be discharged to home later this morning. Ortho Exam Narrative Exam Narrative: Incision/Dressing: Dressing appears clean and dry. No drainage present. Mepilex intact. Left hip appears minimally swollen but supple with no obvious erythema, fluctuance or excessive warmth. No ecchymosis or erythematous streaking. Warmth around the wound is appropriate. Ice is being utilized as needed. 1 cm x 1 cm skin abrasion present near proximal aspect of Mepilex dressing. No sign of infection. CMS: Intact distally with 2+ Dorsalis pedis and Posterior Tibial pulses. 5/5 motor strength dorsal and plantar flexion. Confirmed sensation distally. Intact straight leg raise. Calf: Bilateral calves are supple, with no swelling, pain, tenderness, erythema, discoloration or coolness to the touch. Constitutional: Patient is alert and oriented x3. Patient is in no acute distress and converses without labored breathing. Patient is able to make decisions and demonstrates good insight. Patient is pleasant and cooperative. Affect is full range and appropriate for the circumstances. Const Vital Signs, click to edit/add: Vital Signs - 24 hr 03/27/23 07:26 03/27/23 07:34 03/27/23 10:40 Temperature 97.0 F L Pulse Rate 61 61 61 Pulse Rate [Pulse Oximeter] Respiratory Rate 16 16 16 Blood Pressure 150/86 H 123/74 141/65 H Blood Pressure [Left Arm] Blood Pressure [Right Arm] Pulse Oximetry 97 97 96 Oxygen Delivery Method Nasal Cannula Nasal Cannula Room Air Oxygen Flow Rate 2 2 03/27/23 10:45 03/27/23 10:50 03/27/23 10:55 Temperature 97.0 F L Pulse Rate 61 62 61 Pulse Rate [Pulse Oximeter] Respiratory Rate 16 16 Blood Pressure 133/64 134/64 130/66 Blood Pressure [Left Arm] Blood Pressure [Right Arm] Pulse Oximetry 92 100 100 Oxygen Delivery Method Nasal Cannula Nasal Cannula Oxygen Flow Rate 2 2 03/27/23 11:00 03/27/23 11:05 03/27/23 11:10 Temperature 97.1 F L Pulse Rate 63 62 63 Pulse Rate [Pulse Oximeter] Respiratory Rate 16 16 16 Blood Pressure 131/67 125/100 H 138/67 Blood Pressure [Left Arm] Blood Pressure [Right Arm] Pulse Oximetry 100 100 100 Oxygen Delivery Method Nasal Cannula Oxygen Flow Rate 2 03/27/23 11:15 03/27/23 11:20 03/27/23 11:25 Temperature 97.0 F L Pulse Rate 60 59 L 60 Pulse Rate [Pulse Oximeter] Respiratory Rate 16 16 16 Blood Pressure 137/66 138/74 137/68 Blood Pressure [Left Arm] Blood Pressure [Right Arm] Pulse Oximetry 100 94 99 Oxygen Delivery Method Nasal Cannula Oxygen Flow Rate 2 03/27/23 11:30 03/27/23 11:35 03/27/23 11:45 Temperature 97.0 F L Pulse Rate 60 60 60 Pulse Rate [Pulse Oximeter] Respiratory Rate 14 14 16 Blood Pressure 143/73 H 130/71 146/74 H Blood Pressure [Left Arm] Blood Pressure [Right Arm] Pulse Oximetry 100 100 100 Oxygen Delivery Method Nasal Cannula Oxygen Flow Rate 2 03/27/23 11:54 03/27/23 12:00 03/27/23 12:15 Temperature 96.5 F L 96.5 F L Pulse Rate 61 Pulse Rate [Pulse Oximeter] 60 60 Respiratory Rate 18 18 18 Blood Pressure Blood Pressure [Left Arm] 143/83 H 122/68 129/61 Blood Pressure [Right Arm] Pulse Oximetry 95 97 Oxygen Delivery Method Nasal Cannula Nasal Cannula Nasal Cannula Oxygen Flow Rate 2 2 03/27/23 12:22 03/27/23 12:30 03/27/23 12:45 Temperature Pulse Rate Pulse Rate [Pulse Oximeter] 59 L 60 Respiratory Rate 18 18 18 Blood Pressure Blood Pressure [Left Arm] 133/70 135/69 Blood Pressure [Right Arm] Pulse Oximetry 98 98 94 Oxygen Delivery Method Nasal Cannula Nasal Cannula Nasal Cannula Oxygen Flow Rate 2 2 2 03/27/23 13:00 03/27/23 13:30 03/27/23 14:00 Temperature 97 F L 97 F L Pulse Rate Pulse Rate [Pulse Oximeter] 60 65 67 Respiratory Rate 18 18 18 Blood Pressure Blood Pressure [Left Arm] 125/64 105/64 136/68 Blood Pressure [Right Arm] Pulse Oximetry 95 98 94 Oxygen Delivery Method Nasal Cannula Nasal Cannula Room Air Oxygen Flow Rate 2 2 03/27/23 15:00 03/27/23 16:00 03/27/23 17:00 Temperature 97.2 F L 97.4 F L Pulse Rate Pulse Rate [Pulse Oximeter] 69 66 64 Respiratory Rate 18 18 16 Blood Pressure Blood Pressure [Left Arm] 128/67 127/77 124/77 Blood Pressure [Right Arm] Pulse Oximetry 93 92 94 Oxygen Delivery Method Room Air Room Air Room Air Oxygen Flow Rate 03/27/23 19:00 03/27/23 20:25 03/27/23 23:00 Temperature 98.3 F 98.0 F Pulse Rate Pulse Rate [Pulse Oximeter] 80 80 72 Respiratory Rate 18 18 16 Blood Pressure Blood Pressure [Left Arm] Blood Pressure [Right Arm] 140/105 H 132/68 Pulse Oximetry 93 94 Oxygen Delivery Method Room Air Room Air Oxygen Flow Rate 03/28/23 03:00 Temperature 97.9 F Pulse Rate Pulse Rate [Pulse Oximeter] 75 Respiratory Rate 18 Blood Pressure Blood Pressure [Left Arm] Blood Pressure [Right Arm] 144/79 H Pulse Oximetry 93 Oxygen Delivery Method Room Air Oxygen Flow Rate Assessment and Plan Assessment and plan (1) Status post left hip replacement: Problem details: Day 1 s/p left JAMES (Dr. Grove) Status: Acute Assessment and Plan: - Complete 23 hour perioperative antibiotics. - PT/OT consults for education and assistance. Patient will require outpatient physical therapy. - Weight bear as tolerated with a walker for assistance. - Prescribed analgesics as needed. Patient is content with current narcotic medications. Minimize narcotic pain medication use; wean off and discontinue as soon as possible. - DVT prophylaxis: patient may resume his daily Eliquis medication. Also bilateral knee high Bladimir stockings (x 1 month), frequent ambulation and ankle pumps when sedentary. - We discussed postoperative constipation, a common side effect of oxycodone. Patient declined a script for Senna, stating he already has plenty at home. - Social consult for discharge planning. - Anticipate patient will be discharged to home this morning if the patient remains medically stable, pain is controlled and is safe with ambulation. - Return to clinic in 1 week for a wound check with Gina Correa PA-C. Mepilex dressing will be removed at this appointment. Remove sooner if dressing becomes saturated. - Return to clinic in [address] Grove. - Phone Orthopedics with any questions or concerns. [phone]
[2023-03-28 07:29] VITALS: BP 155/67; PULSE 67; RESP 16; TEMP 36.7; O2SAT 93
[2023-03-28] MEDS: SENNOSIDES 1 TAB TABLET 2 TAB PO (08:36)
[2023-03-28] MEDS: APIXABAN 5 MG TABLET PO (10:22)
--- NOTE | 2023-03-28 11:42 | PC.NURSE ---
Pt alert and oriented. Pt had no complaints of pain. Pt up with SBA and walker with gait belt. Pt's dressing dry and intact. Pt's IV removed at 0738am catheter intact. Pt discharged home with at 1040am.
== END 2023-03-28 10:40 | disposition home or self-care (01) ==
LOC: OR 06:06 → MEDSURG 06:08
PROVIDERS: PCP Family Medicine; Visit Provider Orthopaedic Surgery
PROC: (CPT 27130; principal; 2023-03-27 07:30)
DX: M16.12 Unilateral primary osteoarthritis, left hip (principal); G89.18 Other acute postprocedural pain; E11.9 Type 2 diabetes mellitus without complications; I10 Essential (primary) hypertension; I48.0 Paroxysmal atrial fibrillation; Z95.0 Presence of cardiac pacemaker; E78.5 Hyperlipidemia, unspecified
CPT/HCPCS: 27130; 01214; 36415; 64450; 73501; 76000; 76942; 82565; 84132; 84295; 84520; 85025; 97110; 97116; 97161; 97165; 97530; 97535; A9270; C1776; J0330; J0690; J1100; J1170; J2250; J2405; J2704; J2710; J3010; J3490; J7120

== ENCOUNTER 2023-04-23 08:00 | Outpatient (RCR) | payer OTHER, SELFPAY ==
--- NOTE | 2023-04-02 09:57 | PT.OPEX ---
[facility] PT [facility] Outpatient Eval Start: 04/02/23 07:55 Freq: Status: Active Protocol: Document 04/02/23 07:56 RUMA (Rec: 04/02/23 09:53 KLV [id number]) E-signed By Sylvia Garcia, PT Physical Therapy Outpatient Evaluation Insurance Information Insurance Name Other; See Comments Insurance Information/Comments Abel Severo Medical Diagnosis Encounter for other orthopedic aftercare Left JAMES DOS 03/27/23 Treating Diagnosis Left hip pain, limited hip ROM , LE weakness Referring MD [place] Subjective Subjective Darryl presents to PT s/p L JAMES DOS 03/27/23 with 1 night uncomplicated night stay. Previously had R JAMES DOS with good recovery. He denies radicular symptoms or calf pain. Is now down to OTC pain medication (tylenol) every 6 hours with good pain management. Has eased off of icing, elevating some. Does note some increase in bruising surrounding bandage but reduction in swelling. Somewhat restless night of sleep last night. Transferring well with FWW. Has SEC at home. Compliant with HEP. Has follow up with Gina SOLOMON) following this session. Goals are to improve strength and stability to wean off AD, [facility] trip [facility] this winter on a cruise. PMH: A-fib, DMII, obesity, pacemaker, HTB, R JAMES Pain Comments 09/27 worst Date of Last Physician Visit 03/28/23 Date of Surgery (If applicable) 03/27/23 Current Work Status Retired Precautions Treatment Precautions/Contraindications Pacemaker Objective Other/Pertinent Objective Gait: ambulating with FWW, excessive L hip ER, limited stance time L LE, limited terminal hip extension L Hip PROM: 90 deg flexion Strength testing: deferred today d/t s/p No s/s of infection or DVT, incision covered with bandage, moderate bruising surrounding bandage Functional Test Performed & Score LEFS: 780 Assessment Assessment/Impression Pt presents with signs and symptoms consistent with s/p L JAMES. DOS: 03/27/23. Anticipated deficits/ impairments in swelling, pain, ROM, and strength. Pt would benefit from skilled PT interventions to facilitate return to PLOF and walking without AD on even/uneven ground. Primary Functional Limitations Walking even/uneven ground, squatting, bending, sleeping Plan of Care Rehabilitation Potential Good Physical Therapy Goals By 4 weeks (04/30/23) Pt will be able to ascend/ descend 1 flight of stairs in order to perform ADLs pain free. Pt will demonstrate full and pain free hip ROM in order to perform all ADLs including don /doffing shoes/socks By 8 weeks (05/28/23) Pt will exhibit 9 pt improvement in LEFS Outcome measure to demonstrate functional improvement and progress towards goals. Pt will tolerate gradual progression back to ADLs with <2/10 pain Patient will transition from walker to cane to independent gait with normal mechanics. Treatment Plan/Direct Interventions Gait Training,Ice/Cold/ Vasopneumatic,Joint Mobilization,Manual Therapy, Neuromuscular Re-ed,Self-Care/ Home Management,Therapeutic Activities,Therapeutic Exercises Frequency/Duration 1x/wk for 4 weeks with additional 4 sessions prn based on progress Patient Will Be Discharged From Therapy Completion of LTG(s), Independent w/HEP, Independently Progressing Evaluation Billing Untimed Code Treatment Minutes 25 Complexity Low Certification Information Initial Certification Date 04/02/23 Ending Certification Date 06/27/23 Provider Signature Shows Agreement With POC & Medical Necessity Physician Signature & Date Requested Please Sign/Date Here Physician Comment/Change : Physician NPI Number #
== END 2023-04-23 10:13 | disposition home or self-care (01) ==
PROVIDERS: PCP Family Medicine; Visit Provider Orthopaedic Surgery
DX: M16.12 Unilateral primary osteoarthritis, left hip (principal); Z96.642 Presence of left artificial hip joint; R53.1 Weakness; Z74.09 Other reduced mobility; M25.552 Pain in left hip; Z51.89 Encounter for other specified aftercare
CPT/HCPCS: 97110; 97161

== ENCOUNTER 2023-07-25 08:30 | Outpatient (RCR) | payer OTHER, SELFPAY | END 2023-11-22 23:59 | disposition home or self-care (01) | PROVIDERS: PCP Family Medicine; Visit Provider Family Medicine | DX: M54.50 Low back pain, unspecified (principal); M54.2 Cervicalgia; Z51.89 Encounter for other specified aftercare | CPT/HCPCS: 97110; 97140; 97162 ==